=== PATIENT | male | born 1975 | race Caucasian/White ===

== ENCOUNTER 2016-11-24 14:01 | Emergency (ER) | payer BC, MEDICAID, OTHER ==
[2016-11-24 14:11] VITALS: BP 137/82
[2016-11-24] MEDS ORDERED: Ibuprofen 800 MG Tab PO ONE (14:19)
--- NOTE | 2016-11-24 14:49 | EDM.PDOC ---
<Jose Daniel Levy - Last Filed: 11/24/16 15:03> ED HPI Trauma - General Chief Complaint: Upper Extremity Injury/Pain Stated Complaint: RT WRIST Time Seen by Provider: 11/24/16 14:15 - History of Present Illness INITIAL COMMENTS - FREE TEXT/NARRATIVE: Patient states he slipped on the ice in front of his house a few hours ago. Patient states he fell with all of his weight on the lateral side of his right hand. C/o pain on the top of the hand, the wrist, and into the lower arm. He states his pain is a 10/10. Symptom Onset Date: 11/24/16 Symptom Onset Time: 14:15 Occurred When: this morning Occurred Where: home Method of Injury: fall Severity: severe Pain/Injury Location: Reports: upper extremity, right Consciousness: Reports: no loss of consciousness Associated Symptoms: Reports: no other symptoms Allergies/ADRs: Allergies aspirin Allergy (Verified 11/24/16 14:11) Vomiting morphine Allergy (Verified 11/24/16 14:11) Cannot Remember Review of Systems - Review of Systems Review Of Systems: ROS reveals no pertinent complaints other than HPI. Trauma Exam - Physical Exam Exam: See Below Exam Limited By: No limitations General Appearance: Reports: alert, WD/WN, no apparent distress Head: Reports: atraumatic, normocephalic Eyes: bilateral eye: EOMI, normal inspection, PERRL Ears: Reports: normal external exam, normal canal, hearing grossly normal, normal TMs Nose: Reports: normal inspection, normal mucousa, no blood Throat/Mouth: Reports: Normal inspection, Normal lips, Normal teeth, Normal gums , Normal oropharynx, Normal voice, No airway compromise Neck: Reports: non-tender, full range of motion, normal alignment, normal inspection Respiratory Exam: Reports: no respiratory distress, lungs clear, normal breath sounds Cardiovascular: Reports: normal peripheral pulses, regular rate, rhythm, no edema, no gallop, no JVD, no murmur, no rub GI/Abdominal: Reports: normal bowel sounds, soft, non tender, no organomegaly, no distention, no abnormal bruit, no mass (Male) Exam: Deferred Rectal (Males) Exam: Deferred Back: Reports: full range of motion, normal inspection, non-tender Extremities: Reports: normal range of motion, other (pain in the right wrist, hand, arm, no bruising, minimal swelling, CMS good. ) Neurologic: Reports: bed rubber II-XII nml as tested, no motor/sensory deficits, alert , normal mood/affect, oriented x 3 Skin: Reports: Normal color, Warm/dry - Michele Coma Score Best Eye Response (Michele): (4) open spontaneously Best Verbal Response (Michele): (5) oriented Best Motor Response (Cooper): (6) obeys commands Course - Vital Signs Last Recorded V/S: Last Vital Signs Temp 37.1 C 11/24/16 14:07 Pulse 112 H 11/24/16 14:07 Resp 16 11/24/16 14:07 BP 137/82 11/24/16 14:07 Pulse Ox 100 11/24/16 14:07 - Orders/Labs/Meds Meds: Medications Discontinued Medications Generic Name Dose Route Start Last Admin Trade Name Freq PRN Reason Stop Dose Admin Ibuprofen 800 mg 11/24/16 14:19 11/24/16 14:23 Motrin PO 11/24/16 14:20 800 mg ONETIME ONE Administration Departure - Departure Disposition: Home, Self-Care 01 Clinical Impression: Sprain of right wrist Qualifiers: Encounter type: initial encounter Qualified Code(s): S63.501A - Unspecified sprain of right wrist, initial encounter Instructions: Wrist Sprain Forms: ED Department Discharge Additional Instructions: Rest, ice, and elevate right wrist as needed for pain or swelling. Wear splint as needed. Follow up in clinic in 1 week for recheck. <Lewis Negrete - Last Filed: 11/24/16 18:58> ED HPI Trauma - General Source: Reports: Patient, Old records, RN, RN notes reviewed History Limitations: Reports: No limitations Past Medical History - Past Health History Medical/Surgical History: Denies Medical/Surgical History HEENT History: Reports: None Cardiovascular History: Reports: Heart murmur Respiratory History: Reports: Asthma Gastrointestinal History: Reports: None Genitourinary History: Reports: None Musculoskeletal History: Reports: Osteoarthritis Other Musculoskeletal History: back pain-acute Neurological History: Reports: Head trauma Other Neuro History: coma 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 Psychiatric History: Reports: None Endocrine/Metabolic History: Reports: None Hematologic History: Reports: None Immunologic History: Reports: None Oncologic (Cancer) History: Reports: None Dermatologic History: Reports: Other (see below) Other Dermatologic History: rash - Infectious Disease History Infectious Disease History: Reports: Chicken pox - Past Surgical History Head Surgeries/Procedures: Reports: None Social & Family History - Family History Family Medical History: Noncontributory - Tobacco Use Smoking Status *Q: Current Every Day Smoker Years of Tobacco use: 25 Packs/Tins Daily: 2 Used Tobacco, but Quit: No Second Hand Smoke Exposure: No - Caffeine Use Caffeine Use: Reports: Soda - Recreational Drug Use Recreational Drug Use: No - Living Situation & Occupation Living situation: Reports: with significant other Occupation: employed Review of Systems - Review of Systems Review Of Systems: ROS reveals no pertinent complaints other than HPI. Trauma Exam - Physical Exam Exam: See Below Course - Radiology Interpretation Free Text/Narrative:: Xray Rt wrist: no fractures, see Rad. report. - Re-Assessments/Exams Free Text/Narrative Re-Assessment/Exam: 11/24/16 18:57 FOR THIS ENCOUNTER THE PATIENT WAS SEEN IN CONJUNCTION WITH [facility] STUDENT JOSE DANIEL LEVY. ALL PATIENT CARE AND/OR PROCEDURE(S), DIAGNOSTIC ORDERS, MEDICATION(S) AND TREATMENT ORDERS, DISPOSITION ORDERS/PLANNING, AND DISCHARGE/FOLLOW UP INSTRUCTIONS WERE UNDER MY DIRECT SUPERVISION. gbd Departure - Departure Time of Disposition: 14:43 Condition: good
--- NOTE | 2016-11-24 14:54 | CR ---
CLINICAL HISTORY: 41-year-old male injured right wrist. INTERPRETATION: Four views right wrist confirm some soft tissue swelling but failed to reveal underl sanjay fracture or dislocation. No appreciable arthritic degenerative change but subtle deformity and subchondral cyst radiostyloid suggesting old injury. No foreign bodies. CONCLUSION: No acute fracture. Soft tissue swelling and probable old trauma.
== END 2016-11-24 15:06 | disposition home or self-care (01) ==
LOC: DL.ED 14:01
DX: S63.501A Unspecified sprain of right wrist, initial encounter (principal); Z88.8 Allergy status to other drugs, medicaments and biological substances; Z88.5 Allergy status to narcotic agent; W00.0XXA Fall on same level due to ice and snow, initial encounter; Y92.099 Unspecified place in other non-institutional residence as the place of occurrence of the external cause
CPT/HCPCS: 73110; 99284; A9270

== ENCOUNTER 2019-03-09 09:32 | Emergency (ER) | payer MEDICAID ==
[2019-03-09 10:00] VITALS: BP 119/82; PULSE 89
--- NOTE | 2019-03-09 10:02 | EDM.PDOC ---
ED HPI GENERAL MEDICAL PROBLEM - General Chief Complaint: Upper Extremity Injury/Pain Stated Complaint: WRIST POPPED,PAIN ALL THE WAY UP ARM Time Seen by Provider: 03/09/19 09:50 Source of Information: Reports: Patient History Limitations: Reports: No Limitations - History of Present Illness INITIAL COMMENTS - FREE TEXT/NARRATIVE: This 43 yo male patient reports to the ED with left wrist pain and swelling. The patient reports he was using his hands to get up on a deck when he heard a "pop" in his left wrist. The patient has noticed increased swelling in left distal radius and pain "shooting" up his arm. Onset: Today Duration: Hour(s): (1), Constant Location: Reports: Upper Extremity, Left Quality: Reports: Ache, Sharp Severity: Moderate Improves with: Reports: None Worsens with: Reports: None Context: Reports: Activity Associated Symptoms: Reports: No Other Symptoms Left Wrist Pain Score (Numeric/FACES): 10 - Related Data Allergies Allergy/AdvReac Type Severity Reaction Status Date / Time aspirin Allergy Vomiting Verified 03/09/19 09:50 morphine Allergy Cannot Verified 03/09/19 09:50 Remember Home Meds: Home Meds . [No Known Home Meds] 07/15/18 [History] Past Medical History - Past Health History Medical/Surgical History: Denies Medical/Surgical History HEENT History: Reports: None Cardiovascular History: Reports: Heart Murmur Respiratory History: Reports: Asthma Gastrointestinal History: Reports: None Genitourinary History: Reports: None Musculoskeletal History: Reports: Osteoarthritis Other Musculoskeletal History: back pain-acute Neurological History: Reports: Head Trauma Other Neuro History: coma 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 Psychiatric History: Reports: None Endocrine/Metabolic History: Reports: None Hematologic History: Reports: None Immunologic History: Reports: None Oncologic (Cancer) History: Reports: None Dermatologic History: Reports: Other (See Below) Other Dermatologic History: rash - Infectious Disease History Infectious Disease History: Reports: Chicken Pox - Past Surgical History Head Surgeries/Procedures: Reports: None Social & Family History - Family History Family Medical History: Noncontributory - Caffeine Use Caffeine Use: Reports: Soda - Living Situation & Occupation Living situation: Reports: with Significant Other Occupation: Employed Review of Systems - Review of Systems Review Of Systems: ROS reveals no pertinent complaints other than HPI. ED EXAM, GENERAL - Physical Exam Exam: See Below Exam Limited By: No Limitations General Appearance: Alert, WD/WN, Mild Distress Eye Exam: Bilateral Eye: EOMI, Normal Inspection, PERRL Ears: Normal External Exam, Normal Canal, Hearing Grossly Normal, Normal TMs Nose: Normal Inspection, Normal Mucosa, No Blood Throat/Mouth: Normal Inspection, Normal Lips, Normal Teeth, Normal Gums, Normal Oropharynx, Normal Voice, No Airway Compromise Head: Atraumatic, Normocephalic Neck: Normal Inspection, Supple, Non-Tender, Full Range of Motion Respiratory/Chest: No Respiratory Distress, Lungs Clear, Normal Breath Sounds, No Accessory Muscle Use, Chest Non-Tender Cardiovascular: Normal Peripheral Pulses, Regular Rate, Rhythm, No Edema, No Gallop, No JVD, No Murmur, No Rub (Male) Exam: Deferred Rectal (Males) Exam: Deferred Extremities: Arm Pain (left wrist pain and swelling over distal radius. Palpable mass over the area. ) Neurological: Alert, Oriented, CN II-XII Intact, Normal Cognition, Normal Gait, Normal Reflexes, No Motor/Sensory Deficits Psychiatric: Normal Affect, Normal Mood Skin Exam: Warm, Dry, Intact, Normal Color, No Rash Lymphatic: No Adenopathy Course - Vital Signs Last Recorded V/S: Last Vital Signs Temp 36.9 C 03/09/19 09:50 Pulse 89 03/09/19 09:50 Resp 16 03/09/19 09:50 BP 119/82 03/09/19 09:50 Pulse Ox 98 03/09/19 09:50 - Orders/Labs/Meds Orders: Active Orders 24 hr Category Date Time Status DME for Discharge [COMM] Urgent Oth 03/09/19 10:23 Ordered Departure - Departure Time of Disposition: 10:24 Disposition: Home, Self-Care 01 Condition: Fair Clinical Impression: Synovial cyst of left wrist - Discharge Information *PRESCRIPTION DRUG MONITORING PROGRAM REVIEWED*: Not Applicable *COPY OF PRESCRIPTION DRUG MONITORING REPORT IN PATIENT DANIELLE: Not Applicable Forms: ED Department Discharge Care Plan Goals: The patient was advised of the examination and x-ray results during the visit. The patient was placed in an CANDELARIO wrap for compression and a manufactured wrist splint for immobilization while in the ED. The patient was encouraged to rest, ice, compress and elevate the wrist over the next 24 hours to reduce swelling. If the patient has any additional symptoms or concerns, the patient should either return to the emergency department or visit his primary care facility. - My Orders Last 24 Hours: My Active Orders 03/09/19 10:23 DME for Discharge [COMM] Urgent - Assessment/Plan Last 24 Hours: My Active Orders 03/09/19 10:23 DME for Discharge [COMM] Urgent
== END 2019-03-09 10:32 | disposition home or self-care (01) ==
LOC: DL.ED 09:32
DX: M71.332 Other bursal cyst, left wrist (principal); Z88.6 Allergy status to analgesic agent; Z88.5 Allergy status to narcotic agent
CPT/HCPCS: 73110-LT; 99283-25

== ENCOUNTER 2020-02-01 12:58 | Emergency (ER) | payer SELFPAY ==
[2020-02-01 13:16] VITALS: BP 120/86; PULSE 111
--- NOTE | 2020-02-01 14:35 | EDM.PDOC ---
ED HPI GENERAL MEDICAL PROBLEM - General Chief Complaint: Upper Extremity Injury/Pain Stated Complaint: RIGHT ARM HURTS Time Seen by Provider: 02/01/20 13:30 Source of Information: Reports: Patient, Old Records, RN, RN Notes Reviewed History Limitations: Reports: No Limitations - History of Present Illness INITIAL COMMENTS - FREE TEXT/NARRATIVE: Pt presents to ER from home by POV with c/o severe right elbow pain sustained today while carrying two 8 foot sheets of dry wall when he heard a pop and developed sudden extreme pain in his right arm. Pulse present. Denies any other injury. Rate pain 10/10. Right Arm Pain Score (Numeric/FACES): 15 - Related Data Allergies Allergy/AdvReac Type Severity Reaction Status Date / Time aspirin Allergy Vomiting Verified 02/01/20 13:16 morphine Allergy Cannot Verified 02/01/20 13:16 Remember Home Meds: Home Meds Albuterol Sulfate [Albuterol Sulfate Hfa] 6.7 gm IH ASDIRECTED 02/01/20 [History ] Past Medical History - Past Health History Medical/Surgical History: Denies Medical/Surgical History HEENT History: Reports: None Cardiovascular History: Reports: Heart Murmur Respiratory History: Reports: Asthma Gastrointestinal History: Reports: None Genitourinary History: Reports: None Musculoskeletal History: Reports: Osteoarthritis Other Musculoskeletal History: back pain-acute Neurological History: Reports: Head Trauma Other Neuro History: coma 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 Psychiatric History: Reports: None Endocrine/Metabolic History: Reports: None Hematologic History: Reports: None Immunologic History: Reports: None Oncologic (Cancer) History: Reports: None Dermatologic History: Reports: Other (See Below) Other Dermatologic History: rash - Infectious Disease History Infectious Disease History: Reports: Chicken Pox - Past Surgical History Head Surgeries/Procedures: Reports: None Musculoskeletal Surgical History: Reports: Other (See Below) Other Musculoskeletal Surgeries/Procedures:: left wrist surgery Social & Family History - Family History Family Medical History: Noncontributory - Tobacco Use Smoking Status *Q: Current Every Day Smoker Years of Tobacco use: 30 Packs/Tins Daily: 1 - Caffeine Use Caffeine Use: Reports: Soda - Recreational Drug Use Recreational Drug Use: No - Living Situation & Occupation Living situation: Reports: with Significant Other Occupation: Employed Review of Systems - Review of Systems Review Of Systems: Comprehensive ROS is negative, except as noted in HPI. ED EXAM, GENERAL - Physical Exam Exam: See Below Exam Limited By: No Limitations General Appearance: Alert, WD/WN, No Apparent Distress Head: Atraumatic, Normocephalic Respiratory/Chest: No Respiratory Distress Cardiovascular: Normal Peripheral Pulses Peripheral Pulses: 3+: Radial (L), Radial (R) Back Exam: Normal Inspection Extremities: Normal Capillary Refill, Arm Pain (Rt biceps is tender and in a retracted balled up mass consistent with biceps tendon rupture), Limited Range of Motion (Rt elbow due to biceps regional pain). No: Joint Swelling Neurological: Alert, Oriented, Normal Cognition, No Motor/Sensory Deficits Psychiatric: Normal Mood Skin Exam: Warm, Dry, Intact, Normal Color, No Rash Course - Vital Signs Last Recorded V/S: Last Vital Signs Temp 99 F 02/01/20 13:13 Pulse 111 H 02/01/20 13:13 Resp 14 02/01/20 13:13 BP 120/86 02/01/20 13:13 Pulse Ox 100 02/01/20 13:13 - Orders/Labs/Meds Meds: Medications Discontinued Medications Generic Name Dose Route Start Last Admin Trade Name Oswaldo PRN Reason Stop Dose Admin Ibuprofen 800 mg 02/01/20 14:41 Motrin PO 02/01/20 14:42 ONETIME ONE Lidocaine HCl 15 gm 02/01/20 14:39 Lidocaine 5% TOP 02/01/20 14:40 ONETIME ONE - Radiology Interpretation Free Text/Narrative:: [facility] [place] [facility] Final Radiology Report Call: [phone] assistance Online chat: [email or web address] Name: MELIDA BOWMAN Age: 44Years M Date: 02/01/2020 SSN: -- : [id number] Study: XR ELBOW COMPLETE MIN OF 3 VIEWS RIGHT Requesting Physician: GISSELLE LUA Images: 3 Addl Studies: Provided Clinical History: Contrast: Contrast Medium: Contrast Amount: Contrast Method: CONFIDENTIALITY STATEMENT This report is intended only for use by the referring physician, and only in accordance with law. If you received this in error, call [phone]. Page 1 of 1 PROCEDURE INFORMATION: Exam: XR Right Elbow Exam date and time: 02/01/2020 1:29 PM Age: 44 years old Clinical indication: Other: Pain TECHNIQUE: Imaging protocol: XR Right elbow. Views: 3 or more views. COMPARISON: No relevant prior studies available. FINDINGS: Bones/joints: No acute fracture. No dislocation. Alignment is normal. Bone mineralization is normal. No erosions are seen. No significant degenerative change. Soft tissues: No focal soft tissue swelling. No fat pad elevation to indicate elbow joint effusion. IMPRESSION: No acute osseous abnormality. Thank you for allowing us to participate in the care of your patient. Dictated and Authenticated by: Mei Ga MD 02/01/2020 2:04 PM Central Time ([place] & [place]) Departure - Departure Time of Disposition: 14:45 Disposition: Home, Self-Care 01 Condition: Good Clinical Impression: Rupture of right long head biceps tendon Qualifiers: Encounter type: initial encounter Qualified Code(s): S46.111A - Strain of muscle, fascia and tendon of long head of biceps, right arm, initial encounter - Discharge Information *PRESCRIPTION DRUG MONITORING PROGRAM REVIEWED*: Not Applicable *COPY OF PRESCRIPTION DRUG MONITORING REPORT IN PATIENT DANIELLE: Not Applicable Instructions: Distal Biceps Tendon Tear Forms: ED Department Discharge Additional Instructions: Rx: Acetaminophen Codeine *Do not drive while taking this medication. Rx: Ibuprofen 800mg *Take with food. Use Lidocaine topical to area of pain every 2 to 4 hours as needed. Ice pack to area of pain as needed. Wear sling for comfort, but remove sling every few hours to allow right arm to fully extend at the elbow and maintain range of motion. Follow with [facility] in the next week for recheck. Call [phone] to schedule appointment. See your primary clinic if your insurance requires a referral. Sepsis Event Note - Evaluation Sepsis Screening Result: No Definite Risk - Focused Exam Vital Signs: Vital Signs Temp Pulse Resp BP Pulse Ox 02/01/20 13:13 99 F 111 H 14 120/86 100 Date Exam was Performed: 02/01/20 Time Exam was Performed: 14:43
[2020-02-01] MEDS ORDERED: Lidocaine 5% Oint 35.44 GM Tube TOP ONE (14:39)
[2020-02-01] MEDS ORDERED: Ibuprofen 800 MG Tab PO ONE (14:41)
== END 2020-02-01 15:03 | disposition home or self-care (01) ==
LOC: DL.ED 12:58
DX: S46.111A Strain of muscle, fascia and tendon of long head of biceps, right arm, initial encounter (principal); J45.909 Unspecified asthma, uncomplicated; F17.210 Nicotine dependence, cigarettes, uncomplicated; Z88.5 Allergy status to narcotic agent; Z88.6 Allergy status to analgesic agent; X50.9XXA Other and unspecified overexertion or strenuous movements or postures, initial encounter
CPT/HCPCS: 73080; 99283; A9270

== ENCOUNTER 2020-11-19 16:14 | Emergency (ER) | payer SELFPAY ==
[2020-11-19 16:58] VITALS: BP 140/77; PULSE 77
[2020-11-19] MEDS ORDERED: Ketorolac 30 MG/ML SDV IM ONE (18:37)
--- NOTE | 2020-11-19 18:43 | EDM.PDOC ---
<Zachery Alonso M - Last Filed: 11/19/20 18:38> ED HPI GENERAL MEDICAL PROBLEM - General Chief Complaint: Upper Extremity Injury/Pain Stated Complaint: LEFT SHOULDER HURT Time Seen by Provider: 11/19/20 18:30 Source of Information: Reports: Patient History Limitations: Reports: No Limitations - History of Present Illness INITIAL COMMENTS - FREE TEXT/NARRATIVE: This 45 yo male patient reports to the ED with increased left shoulder pain. The patient reports his pain started 2 days ago and has been getting worse. The patient reports he is currently unable to lift his left arm up due to pain. Duration: Day(s):, Constant, Getting Worse Location: Reports: Upper Extremity, Left Quality: Reports: Ache Severity: Moderate Improves with: Reports: Rest Worsens with: Reports: Movement Context: Reports: Activity Associated Symptoms: Reports: No Other Symptoms Treatments [employer]: Reports: Acetaminophen, NSAIDS Left Shoulder Pain Score (Numeric/FACES): 8 - Related Data Allergies Allergy/AdvReac Type Severity Reaction Status Date / Time aspirin Allergy Vomiting Verified 09/10/20 09:57 morphine Allergy Cannot Verified 11/19/20 16:59 Remember Home Meds: Home Meds Ibuprofen 600 mg PO Q6H PRN 09/10/20 [History] Acetaminophen [Tylenol] 650 mg PO Q4H PRN 11/19/20 [History] Past Medical History - Past Health History Medical/Surgical History: Denies Medical/Surgical History HEENT History: Reports: None Cardiovascular History: Reports: Heart Murmur Respiratory History: Reports: Asthma Gastrointestinal History: Reports: None Genitourinary History: Reports: None Musculoskeletal History: Reports: Osteoarthritis Other Musculoskeletal History: back pain-acute Neurological History: Reports: Head Trauma Other Neuro History: coma 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 Psychiatric History: Reports: None Endocrine/Metabolic History: Reports: None Hematologic History: Reports: None Immunologic History: Reports: None Oncologic (Cancer) History: Reports: None Dermatologic History: Reports: Other (See Below) Other Dermatologic History: rash - Infectious Disease History Infectious Disease History: Reports: Chicken Pox - Past Surgical History Head Surgeries/Procedures: Reports: None Musculoskeletal Surgical History: Reports: Other (See Below) Other Musculoskeletal Surgeries/Procedures:: left wrist surgery, right tendon surgery Social & Family History - Family History Family Medical History: No Pertinent Family History - Tobacco Use Tobacco Use Status *Q: Current Every Day Tobacco User Years of Tobacco use: 30 Packs/Tins Daily: 0.5 - Caffeine Use Caffeine Use: Reports: None - Recreational Drug Use Recreational Drug Use: No - Living Situation & Occupation Living situation: Reports: with Significant Other Occupation: Employed Review of Systems - Review of Systems Review Of Systems: Comprehensive ROS is negative, except as noted in HPI. ED EXAM, GENERAL - Physical Exam Exam: See Below Exam Limited By: No Limitations General Appearance: Alert, WD/WN, Moderate Distress Eye Exam: Bilateral Eye: EOMI, Normal Inspection, PERRL Ears: Normal External Exam, Normal Canal, Hearing Grossly Normal, Normal TMs Nose: Normal Inspection, Normal Mucosa, No Blood Throat/Mouth: Normal Inspection, Normal Lips, Normal Teeth, Normal Gums, Normal Oropharynx, Normal Voice, No Airway Compromise Head: Atraumatic, Normocephalic Neck: Normal Inspection, Supple, Non-Tender, Full Range of Motion Respiratory/Chest: No Respiratory Distress, Lungs Clear, Normal Breath Sounds, No Accessory Muscle Use, Chest Non-Tender Cardiovascular: Normal Peripheral Pulses, Regular Rate, Rhythm, No Edema, No Gallop, No JVD, No Murmur, No Rub GI/Abdominal: Normal Bowel Sounds, Soft, Non-Tender, No Organomegaly, No Distention, No Abnormal Bruit, No Mass (Male) Exam: Deferred Rectal (Males) Exam: Deferred Extremities: Arm Pain (left shoulder pain), Limited Range of Motion Neurological: Alert, Oriented, CN II-XII Intact, Normal Cognition, Normal Gait Psychiatric: Normal Affect, Normal Mood Skin Exam: Warm, Dry, Intact, Normal Color, No Rash Lymphatic: No Adenopathy Departure - Departure Disposition: Home, Self-Care 01 Clinical Impression: Left shoulder pain Qualifiers: Chronicity: acute Qualified Code(s): M25.512 - Pain in left shoulder - Discharge Information Referrals: PCP,None [Primary Care Provider] - Forms: ED Department Discharge Additional Instructions: Rx: Medrol Dose pack 1.) Follow up with your primary care provider in one to three days; you likely need an MRI for further evaluation into the injury. 2.) You may continue taking acetaminophen (Tylenol) 1000mg every six hours, as pain persists. 3.) You may apply ice to the affected extremity, as pain and swelling persists. Sepsis Event Note (ED) - Evaluation Sepsis Screening Result: No Definite Risk <Svidal,Val Aminah - Last Filed: 11/19/20 22:23> Course - Vital Signs Last Recorded V/S: Last Vital Signs Temp 99.0 F 11/19/20 16:53 Pulse 77 11/19/20 16:53 Resp 16 11/19/20 16:53 BP 140/77 11/19/20 16:53 Pulse Ox 96 11/19/20 16:53 - Orders/Labs/Meds Meds: Medications Discontinued Medications Generic Name Dose Route Start Last Admin Trade Name Oswaldo PRN Reason Stop Dose Admin Ketorolac Tromethamine 60 mg 11/19/20 18:37 11/19/20 19:29 Toradol IM 11/19/20 18:38 60 mg ONETIME ONE Administration - Radiology Interpretation Free Text/Narrative:: [facility] Final Radiology Report Call: [phone] assistance Online chat: [email or web address] Name: MELIDA BOWMAN Age: 45Years M Date: 11/19/2020 SSN: -- : [id number] Study: CR SHOULDER COMP LT Requesting Physician: Zachery Alonso Images: 3 Addl Studies: Provided Clinical History: Left shoulder pain Contrast: Contrast Medium: Contrast Amount: Contrast Method: CONFIDENTIALITY STATEMENT This report is intended only for use by the referring physician, and only in accordance with law. If you received this in error, call [phone]. Page 1 of 1 PROCEDURE INFORMATION: Exam: XR Left Shoulder Exam date and time: 11/19/2020 6:40 PM Age: 45 years old Clinical indication: Pain; Shoulder; Left; Additional info: Left shoulder pain TECHNIQUE: Imaging protocol: XR Left shoulder. Views: 2 or more views. COMPARISON: No relevant prior studies available. FINDINGS: Bones/joints: There is normal osseous mineralization. There are no suspicious lytic or osteosclerotic lesions. No fracture deformity. No callus formation. No periarticular osteophytes or erosions. No loose bodies. Soft tissues: No soft tissue calcification, gas or foreign body. IMPRESSION: Normal shoulder. Thank you for allowing us to participate in the care of your patient. Dictated and Authenticated by: Bhavin Austin MD 11/19/2020 7:09 PM Central Time ([place] & [place]) - Re-Assessments/Exams Free Text/Narrative Re-Assessment/Exam: 11/19/20 Patient states improvement to shoulder pain following Ketorolac IM. Sling appli ed for comfort. Discussed findings of imaging, including no acute dislocation or fracture. Discussed possible need for MRI to r/o ligamentous injury, and instructed him to follow up with his primary care provider in 1-3 days. Will treat acute inflammation with Medrol dose pack. Discussed supportive cares, including ice/heat and OTC analgesics. Patient verbalized understanding and agreement with the plan of care. Departure - Departure Time of Disposition: 19:18 Condition: Good - Discharge Information *PRESCRIPTION DRUG MONITORING PROGRAM REVIEWED*: Not Applicable *COPY OF PRESCRIPTION DRUG MONITORING REPORT IN PATIENT DANIELLE: Not Applicable Sepsis Event Note (ED) - Focused Exam Vital Signs: Vital Signs Temp Pulse Resp BP Pulse Ox 11/19/20 16:53 99.0 F 77 16 140/77 96
--- NOTE | 2020-11-19 19:09 | CR ---
PROCEDURE INFORMATION: Exam: XR Left Shoulder Exam date and time: 11/19/2020 6:40 PM Age: 45 years old Clinical indication: Pain; Shoulder; Left; Additional info: Left shoulder pain TECHNIQUE: Imaging protocol: XR Left shoulder. Views: 2 or more views. COMPARISON: No relevant prior studies available. FINDINGS: Bones/joints: There is normal osseous mineralization. There are no suspicious lytic or osteosclerotic lesions. No fracture deformity. No callus formation. No periarticular osteophytes or erosions. No loose bodies. Soft tissues: No soft tissue calcification, gas or foreign body. IMPRESSION: Normal shoulder.
== END 2020-11-19 19:44 | disposition home or self-care (01) ==
LOC: DL.ED 16:14
DX: M25.512 Pain in left shoulder (principal); J45.909 Unspecified asthma, uncomplicated; Z88.6 Allergy status to analgesic agent; Z88.5 Allergy status to narcotic agent; Z72.0 Tobacco use
CPT/HCPCS: 73030; 96372; 99283; J1885

== ENCOUNTER 2021-05-06 06:24 | Emergency (ER) | payer BC | END 2021-05-06 08:52 | disposition left against medical advice (07) | LOC: DL.ED 06:24 | DX: Z53.21 Procedure and treatment not carried out due to patient leaving prior to being seen by health care provider (principal) ==

== ENCOUNTER 2021-08-28 09:47 | Emergency (ER) | payer BC, OTHER ==
[2021-08-28 10:04] VITALS: BP 132/82; PULSE 102
[2021-08-28 10:50] LABS: CORONAVIRUS COVID-19 NAA POSITIVE (NEGATIVE)
== END 2021-08-28 11:30 | disposition left against medical advice (07) ==
LOC: DL.ED 09:47
DX: Z53.21 Procedure and treatment not carried out due to patient leaving prior to being seen by health care provider (principal)
CPT/HCPCS: 0240U

== ENCOUNTER 2021-08-28 15:18 | Emergency (ER) | payer BC, OTHER ==
--- NOTE | 2021-08-28 16:04 | EDM.PDOC ---
ED HPI GENERAL MEDICAL PROBLEM - General Chief Complaint: Headache Stated Complaint: HEADACHE,POSSIBLE SINUS,BLACKING IN AND OUT Time Seen by Provider: 08/28/21 15:59 Source of Information: Reports: Patient History Limitations: Reports: No Limitations - History of Present Illness INITIAL COMMENTS - FREE TEXT/NARRATIVE: 46 y/o M c/o sinus pain, congestion, green nasal discharge, for two weeks. Pt registered here earlier today and left without being seen, at that time he was swabbed for COVID and it came back positive after he left. The pts was covid pos two weeks ago. He report the sinus pain is 8/10 when its at its worst. He reports he left her and took excedrin migraine which completley relieved his pain today. He denies sob, cp, abd pn, drugs, etoh. - Related Data Allergies Allergy/AdvReac Type Severity Reaction Status Date / Time aspirin Allergy Vomiting Verified 08/28/21 15:39 morphine Allergy Cannot Verified 08/28/21 15:39 Remember Home Meds: Home Meds Ibuprofen 600 mg PO Q6H PRN 09/10/20 [History] Acetaminophen [Tylenol] 650 mg PO Q4H PRN 11/19/20 [History] Past Medical History - Past Health History Medical/Surgical History: Denies Medical/Surgical History HEENT History: Reports: None Cardiovascular History: Reports: Heart Murmur Respiratory History: Reports: Asthma Gastrointestinal History: Reports: None Genitourinary History: Reports: None Musculoskeletal History: Reports: Osteoarthritis Other Musculoskeletal History: back pain-acute Neurological History: Reports: Head Trauma Other Neuro History: coma 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 Psychiatric History: Reports: None Endocrine/Metabolic History: Reports: None Hematologic History: Reports: None Immunologic History: Reports: None Oncologic (Cancer) History: Reports: None Dermatologic History: Reports: Other (See Below) Other Dermatologic History: rash - Infectious Disease History Infectious Disease History: Reports: Chicken Pox - Past Surgical History Head Surgeries/Procedures: Reports: None Musculoskeletal Surgical History: Reports: Other (See Below) Other Musculoskeletal Surgeries/Procedures:: left wrist surgery, right tendon surgery Social & Family History - Family History Family Medical History: No Pertinent Family History - Caffeine Use Caffeine Use: Reports: None - Living Situation & Occupation Living situation: Reports: with Significant Other Occupation: Employed ED ROS GENERAL - Review of Systems Review Of Systems: Comprehensive ROS is negative, except as noted in HPI. - Physical Exam Exam: See Below Exam Limited By: No Limitations General Appearance: Alert, No Apparent Distress Eye Exam: Bilateral Eye: PERRL Ears: Normal External Exam, Normal Canal, Hearing Grossly Normal, Normal TMs Nose: Nasal Swelling Throat/Mouth: Normal Inspection, Normal Lips, Normal Teeth, Normal Gums, Normal Oropharynx, Normal Voice, No Airway Compromise Head Exam: Other (pain over the ethmoid sinuses) Neck: Normal Inspection, Supple, Non-Tender, Full Range of Motion Respiratory/Chest: No Respiratory Distress, Lungs Clear, Normal Breath Sounds, No Accessory Muscle Use, Chest Non-Tender Cardiovascular: Normal Peripheral Pulses, Regular Rate, Rhythm, No Edema, No Gallop, No JVD, No Murmur, No Rub GI/Abdominal: Soft, Non-Tender (Male) Exam: Deferred Rectal (Males) Exam: Deferred Neuro Exam (Abbreviated): Alert, Oriented, CN II-XII Intact, Normal Cognition, Normal Gait, Normal Reflexes, No Motor/Sensory Deficits Back Exam: Normal Inspection, Full Range of Motion Extremities: Normal Inspection, Normal Range of Motion, Non-Tender, No Pedal Edema, Normal Capillary Refill Psychiatric: Normal Affect, Normal Mood Skin Exam: Warm, Dry, Intact Course - Re-Assessments/Exams Free Text/Narrative Re-Assessment/Exam: 08/28/21 16:04 I discussed the pts exam with him and informed him he has COVID and likely a sinus infection. I will discharge him home on antibiotics. Departure - Departure Time of Disposition: 16:04 Disposition: Home, Self-Care 01 Condition: Good Clinical Impression: COVID-19 Sinus infection Qualifiers: Sinusitis location: ethmoidal Chronicity: acute Recurrence: non-recurrent Qualified Code(s): J01.20 - Acute ethmoidal sinusitis, unspecified - Discharge Information *PRESCRIPTION DRUG MONITORING PROGRAM REVIEWED*: Not Applicable *COPY OF PRESCRIPTION DRUG MONITORING REPORT IN PATIENT DANIELLE: Not Applicable Instructions: 10 Things You Can Do to Manage Your COVID-19 Symptoms at Home - [facility] (04/10/2021), Sinusitis, Adult Additional Instructions: RX: Amoxicillin Drink plenty of fluids to maintain hydration. Quarantine for 10 days while your COVID runs its course.
[2021-08-28 16:19] VITALS: BP 134/84; PULSE 84
== END 2021-08-28 16:13 | disposition home or self-care (01) ==
LOC: DL.ED 15:18
DX: U07.1 COVID-19 (principal); J01.20 Acute ethmoidal sinusitis, unspecified; Z88.5 Allergy status to narcotic agent; Z88.6 Allergy status to analgesic agent
CPT/HCPCS: 99283

== ENCOUNTER 2022-11-01 15:08 | Emergency (ER) | payer MEDICAID, OTHER ==
[2022-11-01] MEDS ORDERED: Nitroglycerin 0.4 MG Tab.SL SL PRN (15:38)
[2022-11-01] MEDS: Sodium Chloride 0.9% 10 ML Syringe FLUSH PRN ×2 (15:54→18:42)
[2022-11-01 16:08] VITALS: BP 127/87; PULSE 85
[2022-11-01 16:21] LABS: ANION GAP 14.9 mEq/L (7-13)
[2022-11-01 16:37] LABS: CORONAVIRUS COVID-19 NAA NEGATIVE (NEGATIVE); RESPIRATORY SYNCYTIAL VIR NAA NEGATIVE (NEGATIVE)
[2022-11-01] MEDS ORDERED: methylPREDNISolone Sodium Succinate 125 MG/2 ML SDV IVPUSH ONE (18:25)
== END 2022-11-01 18:50 | disposition home or self-care (01) ==
LOC: DL.ED 15:08
DX: R09.1 Pleurisy (principal); F17.210 Nicotine dependence, cigarettes, uncomplicated; Z86.16 Personal history of COVID-19; Z20.822 Contact with and (suspected) exposure to COVID-19; Z88.5 Allergy status to narcotic agent
CPT/HCPCS: 0241U; 36415; 71045; 80053; 82150; 83605; 83690; 84484; 85025; 85379; 93005; 93010; 96374; 99284; 99285; J2930; J3490

== ENCOUNTER 2023-06-23 09:47 | Emergency (ER) | payer SELFPAY ==
[2023-06-23] MEDS ORDERED: Acetaminophen 500 MG Tab PO ONE (10:55)
[2023-06-23] MEDS ORDERED: Ibuprofen 400 MG Tab PO ONE (10:55)
[2023-06-23] MEDS ORDERED: Orphenadrine 60 MG/2 ML Inj IM ONE (10:55)
[2023-06-23 11:01] VITALS: BP 125/86; PULSE 85
== END 2023-06-23 12:40 | disposition home or self-care (01) ==
LOC: DL.ED 09:47
DX: M62.838 Other muscle spasm (principal); Z88.5 Allergy status to narcotic agent; Z88.8 Allergy status to other drugs, medicaments and biological substances
CPT/HCPCS: 73030-LT; 96372; 99283; A9270-GY; J2360

== ENCOUNTER 2023-06-27 18:07 | Emergency (ER) | payer OTHER ==
[2023-06-27 19:05] LABS: HEMATOCRIT 44.2 % (40.0-54.0); HEMOGLOBIN 15.3 g/dL (14.0-18.0); MEAN CORPUSCULAR HGB CONC 34.6 g/dL (33.0-35.0); MEAN CORPUSCULAR VOLUME 86.7 fL (80-100); RED BLOOD CELL COUNT 5.1 10^6/uL (4.6-6.2); WHITE BLOOD CELL COUNT,WBC 9.2 10^3/uL (5.0-10.0)
[2023-06-27 19:15] VITALS: BP 149/95; PULSE 94
[2023-06-27] MEDS: Take Home: Acetaminophen/HYDROcodone 325-5 MG, 5 Tab Pack PO ONE (19:47)
[2023-06-27] MEDS: Take Home: Cyclobenzaprine 10 MG Tab, 4 Tab Pack PO ONE (19:47)
== END 2023-06-27 19:51 | disposition home or self-care (01) ==
LOC: DL.ED 18:07
DX: M54.12 Radiculopathy, cervical region (principal); R20.2 Paresthesia of skin; L29.9 Pruritus, unspecified; J45.909 Unspecified asthma, uncomplicated; Z88.5 Allergy status to narcotic agent; Z88.8 Allergy status to other drugs, medicaments and biological substances
CPT/HCPCS: 36415; 72125; 85027; 86140; 93005; 93010; 99284; 99285; A9270